=== PATIENT | female | born 1935 | race Hispanic/Latino ===

== ENCOUNTER 2017-06-06 13:06 | Outpatient (CLI) | payer MEDICARE ==
[2017-06-06] MEDS ORDERED: XYLOCAINE TOPICAL 4% TP ONE ×2 (13:48→13:52)
== END 2017-06-06 13:07 | disposition home or self-care (01) ==
LOC: WOUND 13:06
PROVIDERS: ATTEND Nurse Practitioner
DX: I87.313 Chronic venous hypertension (idiopathic) with ulcer of bilateral lower extremity (principal); L97.821 Non-pressure chronic ulcer of other part of left lower leg limited to breakdown of skin; L97.811 Non-pressure chronic ulcer of other part of right lower leg limited to breakdown of skin; I89.0 Lymphedema, not elsewhere classified; E78.5 Hyperlipidemia, unspecified; I10 Essential (primary) hypertension; Z95.1 Presence of aortocoronary bypass graft; Z72.89 Other problems related to lifestyle

== ENCOUNTER 2017-06-10 13:00 | Outpatient (CLI) | payer MEDICARE | END 2017-06-10 13:01 | disposition home or self-care (01) | LOC: WOUND 13:00 | PROVIDERS: ATTEND Internal Medicine | DX: I87.313 Chronic venous hypertension (idiopathic) with ulcer of bilateral lower extremity (principal); I89.0 Lymphedema, not elsewhere classified; I10 Essential (primary) hypertension; E78.5 Hyperlipidemia, unspecified; I87.2 Venous insufficiency (chronic) (peripheral); I87.1 Compression of vein; Z72.89 Other problems related to lifestyle; Z90.49 Acquired absence of other specified parts of digestive tract; Z95.1 Presence of aortocoronary bypass graft | CPT/HCPCS: 29580 ==

== ENCOUNTER 2017-06-13 12:51 | Outpatient (CLI) | payer MEDICARE ==
[2017-06-13] MEDS ORDERED: DAKIN'S FULL STRENGTH ONE (13:29)
[2017-06-13] MEDS ORDERED: DAKIN'S FULL STRENGTH TP ONE (13:31)
[2017-06-13] MEDS ORDERED: XYLOCAINE TOPICAL 4% TP ONE (14:00)
== END 2017-06-13 12:52 | disposition home or self-care (01) ==
LOC: WOUND 12:51
PROVIDERS: ATTEND Nurse Practitioner
DX: I87.313 Chronic venous hypertension (idiopathic) with ulcer of bilateral lower extremity (principal); L97.821 Non-pressure chronic ulcer of other part of left lower leg limited to breakdown of skin; L97.811 Non-pressure chronic ulcer of other part of right lower leg limited to breakdown of skin; I89.0 Lymphedema, not elsewhere classified; E78.5 Hyperlipidemia, unspecified; Z90.49 Acquired absence of other specified parts of digestive tract; Z95.1 Presence of aortocoronary bypass graft
CPT/HCPCS: 87075; 87076; 87116; 87186

== ENCOUNTER 2017-06-20 13:08 | Outpatient (CLI) | payer MEDICARE ==
[2017-06-20] MEDS ORDERED: NACL 0.9% 500 ML IR ONE (14:03)
[2017-06-21] MEDS ORDERED: NACL 0.9% IR PRN (07:51)
== END 2017-06-20 13:09 | disposition home or self-care (01) ==
LOC: WOUND 13:08
PROVIDERS: ATTEND Nurse Practitioner
DX: I87.313 Chronic venous hypertension (idiopathic) with ulcer of bilateral lower extremity (principal); L97.821 Non-pressure chronic ulcer of other part of left lower leg limited to breakdown of skin; L97.811 Non-pressure chronic ulcer of other part of right lower leg limited to breakdown of skin; L89.620 Pressure ulcer of left heel, unstageable; I89.0 Lymphedema, not elsewhere classified; E78.5 Hyperlipidemia, unspecified; Z90.49 Acquired absence of other specified parts of digestive tract; Z95.1 Presence of aortocoronary bypass graft; Z72.89 Other problems related to lifestyle
CPT/HCPCS: 99215; G0463

== ENCOUNTER 2017-11-14 11:31 | Outpatient (CLI) | payer MEDICARE ==
--- NOTE | 2017-11-14 21:38 | Ultrasound Report ---
FINAL REPORT PROCEDURE: US RENAL BILAT TECHNIQUE: Real-time sonography in multiple planes of the kidneys, ureters and urinary bladder was performed with image documentation. CPT 97664 HISTORY: HYDRONEPHROSIS COMPARISON: No prior studies are available for comparison. FINDINGS: RIGHT kidney: Parenchymal thinning is noted. There is no hydronephrosis. A small echogenic focus measuring about 7 millimeters is noted in the upper portion most likely representing a calculus versus a benign parenchymal calcification. Length: 9 x 4.4 X 3.2 centimeters cm. LEFT kidney: Thinning of the parenchyma is noted. There is no hydronephrosis.. Length: 11 x 5.7 x 3.6cm. Bladder: Cook bulb is in situ with an empty bladder. IMPRESSION: Bilateral renal parenchymal thinning. Right kidney size is at the lower limit of normal. 6 millimeter echogenic focus in the upper portion right kidney may represent a nonobstructive calculus versus a benign parenchymal calcification. .
== END 2017-11-14 11:32 | disposition home or self-care (01) ==
LOC: US 11:31
PROVIDERS: ATTEND Urology
DX: N28.89 Other specified disorders of kidney and ureter (principal); I13.0 Hypertensive heart and chronic kidney disease with heart failure and stage 1 through stage 4 chronic kidney disease, or unspecified chronic kidney disease; E11.22 Type 2 diabetes mellitus with diabetic chronic kidney disease; I50.9 Heart failure, unspecified; N18.3 Chronic kidney disease, stage 3 (moderate); G47.30 Sleep apnea, unspecified; K21.9 Gastro-esophageal reflux disease without esophagitis; E66.9 Obesity, unspecified
CPT/HCPCS: 36415; 76770; 82565; 84520

== ENCOUNTER 2017-12-27 05:56 | Day surgery (SDC) | payer MEDICARE ==
[2017-12-27] MEDS ORDERED: DIPRIVAN 10 MG/ML IV ONE (07:11)
[2017-12-27] MEDS ORDERED: SUBLIMAZE ONE (07:11)
[2017-12-27 07:13] LABS: Basophils # (Auto) 0.1 K/mm3 (0.0-0.1); Basophils % (Auto) 2.1 % (0.0-1.8); Eosinophils # (Auto) 0.2 K/mm3 (0.0-0.4); Eosinophils % (Auto) 5.5 % (0.0-4.3); Hematocrit 35.3 % (30.3-42.9); Hemoglobin 11.7 gm/dl (10.1-14.3); Lymphocytes # (Auto) 1.3 K/mm3 (1.2-5.4); Lymphocytes % (Auto) 30.9 % (13.4-35.0); Mean Corpuscular HGB Conc 33 % (30-34); Mean Corpuscular Hemoglobin 31 pg (28-32); Mean Corpuscular Volume 95 fl (79-97); Monocytes # (Auto) 0.5 K/mm3 (0.0-0.8); Monocytes % (Auto) 11.2 % (0.0-7.3); Platelet Count 197 K/mm3 (140-440); Red Blood Count 3.74 M/mm3 (3.65-5.03); Red Cell Distribution Width 14.2 % (13.2-15.2)
[2017-12-27] MEDS ORDERED: NACL 0.9% 1000 ML 1,000 ML ONE (07:22)
[2017-12-27] MEDS ORDERED: ZOFRAN IV PRN ×2 (07:22→08:00)
[2017-12-27] MEDS ORDERED: DILAUDID IV PRN ×3 (07:22→08:00)
[2017-12-27 07:24] LABS: INR 1.24 (0.87-1.13)
[2017-12-27 07:27] LABS: Calcium 9.4 mg/dL (8.4-10.2)
--- NOTE | 2017-12-27 07:46 | Anesthesia Day of Surgery ---
Anesthesia Day of Surgery - Day of Surgery Patient Examined: Yes Patient H&P Reviewed: Yes Patient is NPO: Yes
--- NOTE | 2017-12-27 07:46 | Anesthesia Consultation ---
Anesthesia Consult and Med Hx Date of service: 12/27/17 - Airway Anesthetic Teeth Evaluation: Poor ROM Head & Neck: Adequate Mental/Hyoid Distance: Adequate Mallampati Class: Class II Intubation Access Assessment: Probably Good - Pulmonary Exam CTA: Yes - Cardiac Exam Cardiac Exam: RRR - Pre-Operative Health Status ASA Pre-Surgery Classification: ASA3 Proposed Anesthetic Plan: General - Pulmonary Hx Smoking: No Hx Asthma: Yes ( CHILD ONLY) Hx Sleep Apnea: No (JARRET PRE SCREEN LOW RISK) - Cardiovascular System Hx Hypertension: Yes Hx Coronary Artery Disease: Yes Hx Peripheral Vascular Disease: Yes (HUBERT LEGS) - Central Nervous System Hx Psychiatric Problems: No - Gastrointestinal Hx Gastroesophageal Reflux Disease: Yes - Endocrine Hx Renal Disease: Yes (CKD) Hx Insulin Dependent Diabetes: Yes Hx Thyroid Disease: Yes Hx Hypothyroidism: Yes - Hematic Hx Anemia: Yes - Other Systems Hx Cancer: No Hx Obesity: Yes
[2017-12-27] MEDS ORDERED: NACL 0.9% 1000 ML 1,000 ML IV SCH (08:00)
[2017-12-27] MEDS ORDERED: HEPARIN SUB-Q NR (08:00)
[2017-12-27] MEDS ORDERED: LEVAQUIN 250MG/50ML 250 MG/50 ML BAG IV NR (08:00)
[2017-12-27] MEDS ORDERED: XYLOCAINE 2% UROJET ONE (08:12)
[2017-12-27] MEDS ORDERED: WATER FOR IRRIG STERILE IR ONE (08:20)
[2017-12-27] MEDS ORDERED: XYLOCAINE MPF 2% ONE (08:32)
[2017-12-27] MEDS ORDERED: ZOFRAN ONE (08:32)
--- NOTE | 2017-12-27 08:47 | Short Stay Summary ---
Short Stay Documentation Date of service: 12/27/17 - History H&P: obtained from office - Allergies and Medications Current Medications: Allergies Penicillins Allergy (Mild, Verified 06/06/17 13:48) Rash Home Medications Medication Instructions Recorded Confirmed Last Taken Type Calcitriol [Rocaltrol] 0.25 mcg PO 2XW 06/20/17 12/27/17 12/25/17 10:00 History Dabigatran [Pradaxa] 75 mg PO BID 06/20/17 12/27/17 12/24/17 09:00 History Fenofibrate,Micronized 134 mg PO QHS 06/20/17 12/27/17 12/26/17 21:00 History [Fenofibrate] Furosemide [Lasix] 20 mg PO Q48HR 06/20/17 12/27/17 12/26/17 11:00 History Glimepiride [Amaryl] 2.5 mg PO QAM 06/20/17 12/27/17 12/26/17 11:00 History Levothyroxine [Synthroid] 125 mcg PO QAM 06/20/17 12/27/17 12/27/17 05:00 History Simvastatin [Zocor TAB] 40 mg PO QHS 06/20/17 12/27/17 12/26/17 21:00 History Vit D3-Vit K/Berberine/Hops 1 tab PO QAM 06/20/17 12/27/17 12/26/17 11:00 History [Ostera Tablet] Adult Probiotic 1 tab PO DAILY 12/20/17 12/27/17 12/22/17 09:00 History Atenolol 50 mg PO DAILY 12/20/17 12/27/17 12/27/17 05:00 History [place] 3 500 Softgel 2 mg PO DAILY 12/20/17 12/27/17 12/26/17 11:00 History Vitamin B12 1 tab PO DAILY 12/20/17 12/27/17 12/26/17 11:00 History Active Medications Heparin Sodium (Porcine) (Heparin) 5,000 unit SUB-Q PREOP NR Stop: 12/27/17 15:00 Last Admin: 12/27/17 07:58 Dose: 5,000 unit Hydromorphone HCl (Dilaudid) 0.25 mg IV Q10MIN PRN PRN Reason: Pain, Moderate (4-6) Stop: 12/27/17 13:00 Hydromorphone HCl (Dilaudid) 0.5 mg IV Q10MIN PRN PRN Reason: Pain , Severe (7-10) Stop: 12/27/17 15:00 Sodium Chloride (Nacl 0.9% 1000 Ml) 1,000 mls @ 42 mls/hr IV DIRECT CHIP Last Admin: 12/27/17 07:25 Dose: 42 mls/hr Levofloxacin/Dextrose (Levaquin 250mg/50ml) 250 mg in 50 mls @ 50 mls/hr IV PREOP NR; Protocol Stop: 12/27/17 09:00 Ondansetron HCl (Zofran) 4 mg IV ONCE PRN PRN Reason: Nausea And Vomiting Stop: 12/27/17 10:00 - Brief post op/procedure progress note Date of procedure: 12/27/17 Pre-op diagnosis: retained stent Post-op diagnosis: same Procedure: cysto evac , left rpg right stent removal Anesthesia: GETA Findings: encrust Surgeon: EASTON RIOS Estimated blood loss: minimal Pathology: none Condition: stable - Hospital course Hospital course: orpacuhome - Disposition Condition at discharge: Good Disposition: DC-01 TO HOME OR SELFCARE Short Stay Discharge Plan Activity: advance as tolerated Follow up with: EASTON RIOS MD [Staff Physician] - 7 Days
[2017-12-27 10:31] VITALS: BP 119/60
--- NOTE | 2017-12-27 13:59 | Fluoroscopy Report ---
FLUOROSCOPY RETROGRADE UROGRAPHY: HISTORY: Hydronephrosis. FINDINGS: Fluoroscopy was provided by radiology during retrograde urography by the urologist. 6 fluoroscopic images were captured. The left pyelogram is normal. The right pyelogram was not performed. A right ureteral stent was removed. Please correlate with the procedural report as needed. IMPRESSION: Retrograde pyelograms within normal limits.
--- NOTE | 2017-12-27 19:27 | Post Anesthesia Evaluation ---
- Post Anesthesia Evaluation Patient Participated: Yes Airway Patent: Yes Stable Respiratory Function: Yes Nausea/Vomiting: No Temp > 96.8F: Yes Pain Manageable: Yes Adequeate Hydration: Yes Anesthesia Complications: No Block Receding Appropriately: Not Applicable Patient on Ventilator: No
--- NOTE | 2018-01-10 10:31 | Operative Report ---
PREOPERATIVE DIAGNOSES: Retained stent, history of hydro. POSTOPERATIVE DIAGNOSES: Retained stent, history of hydro. PROCEDURE: Cystoscopy, stent removal. SURGEON: Marino Spaulding MD ANESTHESIA: . SPECIMENS: None. COMPLICATIONS: None. ESTIMATED BLOOD LOSS: Minimal. CLINICAL INDICATIONS: Counseled RCB. The patient seen by my partner, had previously undergone bilateral stent, one stent removal done awake, unable to remove second stent. The patient came to see me. It was scheduled under fluoroscopy. DESCRIPTION OF PROCEDURE: The patient transferred to the OR suite, antibiotics, SCDs, supine position. Anesthesia, dorsal lithotomy, prepped and draped in standard fashion. A 22-[place] scope passed. Pancystoscopy, no tumors or lesions. Stent visualized, grasped. This was under fluoroscopic visualization, was slowly withdrawn and pulled out intact, and there was noted to be efflux from the ureter post-removal. At this point, the patient was awaken and transferred to PACU in good and stable condition. JOB# [id number] ATS/NTS
== END 2017-12-27 11:02 | disposition home or self-care (01) ==
LOC: OR 05:56
PROVIDERS: ATTEND Urology
DX: N13.30 Unspecified hydronephrosis (principal); I25.10 Atherosclerotic heart disease of native coronary artery without angina pectoris; E11.51 Type 2 diabetes mellitus with diabetic peripheral angiopathy without gangrene; E11.22 Type 2 diabetes mellitus with diabetic chronic kidney disease; I12.9 Hypertensive chronic kidney disease with stage 1 through stage 4 chronic kidney disease, or unspecified chronic kidney disease; N18.9 Chronic kidney disease, unspecified; K21.9 Gastro-esophageal reflux disease without esophagitis; J45.909 Unspecified asthma, uncomplicated; E03.9 Hypothyroidism, unspecified; E66.9 Obesity, unspecified; Z88.0 Allergy status to penicillin; Z68.28 Body mass index [BMI] 28.0-28.9, adult
CPT/HCPCS: 36415; 52310; 74420; 80048; 82962; 85025; 85610; 85730; A4217; C1758; C1769; J1644; J1956; J2405; J2704; J3010; J7030; Q9967

== ENCOUNTER 2018-01-23 11:18 | Outpatient (CLI) | payer MEDICARE ==
--- NOTE | 2018-01-24 08:10 | Ultrasound Report ---
ULTRASOUND RENAL BILATERAL HISTORY: Hydronephrosis. COMPARISON: Renal ultrasound dated 11/14/17. Retrograde urography dated 12/27/17. TECHNIQUE: transabdominal ultrasound with color Doppler interrogation. FINDINGS: The right kidney measures 8.5 x 4.0 x 4.8cm. Right renal cortex: 0.9cm. The left kidney measures 10.4 x 5.7 x 4.1cm. Left renal cortex: 1.2cm. No significant change is appreciated since the renal ultrasound dated 11/14/17. The right kidney it is mildly atrophic. No evidence for cystic disease, calculus, mass or hydronephrosis. The bladder is mildly distended but no evidence for wall abnormality or filling defect. IMPRESSION: Slightly atrophic right kidney. The left kidney is unremarkable. No hydronephrosis is identified.
== END 2018-01-23 11:19 | disposition home or self-care (01) ==
LOC: US 11:18
PROVIDERS: ATTEND Urology
DX: I12.9 Hypertensive chronic kidney disease with stage 1 through stage 4 chronic kidney disease, or unspecified chronic kidney disease (principal); E11.621 Type 2 diabetes mellitus with foot ulcer; E11.22 Type 2 diabetes mellitus with diabetic chronic kidney disease; N18.3 Chronic kidney disease, stage 3 (moderate); E78.00 Pure hypercholesterolemia, unspecified; J45.909 Unspecified asthma, uncomplicated; I25.10 Atherosclerotic heart disease of native coronary artery without angina pectoris; I73.9 Peripheral vascular disease, unspecified; E66.9 Obesity, unspecified; Z88.1 Allergy status to other antibiotic agents
CPT/HCPCS: 76770